=== PATIENT | male | born 1980 | race Caucasian/White ===

== ENCOUNTER 2017-07-29 08:33 | Emergency (ER) | payer OTHER ==
[2017-07-29] MEDS ORDERED: LIDOCAINE 1%, 20ML ONE (10:07)
[2017-07-29] MEDS ORDERED: LIDOCAINE 1%, 20ML SQ ONE (10:30)
== END 2017-07-29 11:00 | disposition home or self-care (01) ==
LOC: ED 09:41
DX: S01.21XA Laceration without foreign body of nose, initial encounter (principal); V89.2XXA Person injured in unspecified motor-vehicle accident, traffic, initial encounter; Y93.89 Activity, other specified; Y92.89 Other specified places as the place of occurrence of the external cause; Y99.8 Other external cause status
CPT/HCPCS: 12011; 70160; 99284; J3490